=== PATIENT | male | born 1960 | race Caucasian/White ===

== ENCOUNTER 2022-02-18 18:57 | Emergency (ER) | payer BC, SELFPAY ==
--- NOTE | ~2022-02-18 | XR_ITS ---
EXAMINATION: XR forearm LT 2V DATE: 02/18/2022 19:18 INDICATION: Kicked by horse in the mid to distal ulnar side of the forearm. TECHNIQUE: AP an lateral views of the left forearm were obtained. COMPARISON: none FINDINGS: Subtle linear lucency consistent with nondisplaced fracture at the junction of the mid to distal thir d of the left ulnar diaphysis. Alignment remains normal. No other fractures identified. Mild osteoart hritis at the first metacarpophalangeal joint. Soft tissues are unremarkable. No elbow joint effusion . IMPRESSION: 1. Nondisplaced mid to distal left ulnar diaphyseal fracture. Reviewed, dictated and finalized at location A.
[2022-02-18 19:06] VITALS: BP 120/84; PULSE 81; RESP 16; TEMP 37.2; O2SAT 97
--- NOTE | 2022-02-18 20:34 | ED.UPPEXIN ---
HPI - Extremity Injury (Upper) General Chief Complaint: Extremity Injury, Upper Stated Complaint: Left Arm Injury Time Seen by Provider: 02/18/22 19:50 Source: patient, family, RN notes reviewed and old records reviewed Mode of arrival: ambulatory Limitations: no limitations History of Present Illness HPI narrative: 61-year-old male who presents to [facility] with left arm injury after being kicked in the mid left forearm by a horse at 8:00 this morning. Patient states he has noticed swelling as the days gone on and that is why he came in this evening, Patient has own sling in place and he reports that he took Naprosyn at 0830 this morning. Patient has strong pulses to left arm and wrist, denies any tingling or numbness to left hand. MD complaint: injury to: left and forearm Onset (ago): hour(s) (this morning at 0800) Handedness: right Severity scale (1-10): 3 Treatments prior to arrival: cold therapy and other (sling inplace, took Naprosyn) Related Data Home Medications Medication Instructions Recorded Confirmed colestipol 1 gram tablet 1 g PO BID 02/18/22 02/18/22 omeprazole 40 mg capsule,delayed 40 mg PO DAILY 02/18/22 02/18/22 release Allergies Allergy/AdvReac Type Severity Reaction Status Date / Time oxycodone Allergy Intermediate Rash Verified 02/18/22 20:02 Review of Systems Review of Systems: CONSTITUTIONAL: Denies fever, chills, or sweats. EYES: Denies visual changes, redness, or discharge. ENT: Denies rhinorrhea, congestion, sore throat, or otalgia. CARDIOVASCULAR: Denies chest pain, palpitations, or edema. RESPIRATORY: Denies cough or dyspnea. GASTROINTESTINAL: Denies abdominal pain, nausea, vomiting, or diarrhea. GENITOURINARY: Denies dysuria or hematuria. SKIN: Denies rash or itching. MUSCULOSKELETAL: Denies back pain, left forearm pain , or myalgia. NEUROLOGIC: Denies headache, numbness, or weakness. PSYCHIATRIC: Denies anxiety or depression. All systems reviewed & are unremarkable except as noted in HPI and below PMFSH Past Medical History Medical History (Updated 02/19/22 @ 00:01 by Zoe Rodriguez) GERD (gastroesophageal reflux disease) Surgical History Surgical History (Updated 10/02/22 @ 08:28 by Mary Cooper NP) H/O left knee surgery meniscus repair History of nasal surgery History of surgery on arm bilateral for torn tendons Hx of cholecystectomy Hx of tonsillectomy Social History Social History (Updated 02/18/22 @ 20:42 by Mary Cooper NP) Smoking status: Never smoker Living arrangements: with family Gender identity (if verbalized by the patient): Male Comments At time of signature, agree with nursing past medical, surgical, social and family history. There is no relevant family history pertinent to the presenting complaint Exam Narrative: GENERAL: Well-appearing, well-nourished, and in no acute distress. HEAD: Normocephalic, atraumatic. EYES: PERRLA and EOMI. ENT: Nares clear, no rhinorrhea or epistaxis. Mucous membranes moist.TM's normal throat pink with no lesions or swelling NECK: Supple. no lymphadenopathy CHEST: Clear to auscultation. No respiratory distress.SAO2 97% on room air HEART: Regular rate and rhythm. No murmur heard. Normal peripheral pulses. ABDOMEN: Soft, nontender, nondistended, normal active bowel sounds. EXTREMITIES: Normal range of motion. No edema. Pain and some swelling to left forearm from injury. strong pulses to left arm and wrist, sensation is intact pain with movement of left forearm. SKIN: Warm, dry, no rash. NEURO: No focal deficits. Alert and oriented x3. Course Course Level of Care: Express Care Visit Vital Signs Vital signs: Vital Signs Temperature 37.2 C 02/18/22 19:06 Pulse Rate 81 02/18/22 19:06 Respiratory Rate 16 02/18/22 19:06 Blood Pressure 120/84 02/18/22 19:06 Pulse Oximetry 97 02/18/22 19:06 Oxygen Delivery Room Air 02/18/22 19:06 Temperature 37.2 C 02/18/22 19:06 Pulse
== END 2022-02-18 20:56 | disposition home or self-care (01) ==
PROVIDERS: Emergency Provider Registered Nurse
DX: S52.602A Unspecified fracture of lower end of left ulna, initial encounter for closed fracture (principal); W55.12XA Struck by horse, initial encounter; K21.9 Gastro-esophageal reflux disease without esophagitis
CPT/HCPCS: 29125; 73090; 99214; G0463